=== PATIENT | male | born 1990 | race African-American/Black ===

== ENCOUNTER 2018-05-22 09:24 | Emergency (ER) | payer SELFPAY ==
[2018-05-22] MEDS ORDERED: Ibuprofen TAB* 600 MG PO ONE (09:34)
[2018-05-22] MEDS ORDERED: NS 0.9% 1000 ML** 1,000 ML IV ONE ×2 (10:11→11:21)
[2018-05-22 10:34] LABS: ABS Basophils 0 10^3/ul (0-0.2); ABS Eosinophils 0 10^3/ul (0-0.6); ABS Lymphocytes 0.5 10^3/ul (1.0-4.8); ABS Monocytes 0.5 10^3/ul (0-0.8); ABS Neutrophils 10.4 10^3/ul (1.5-7.7); ABS Nucleated RBC 0 10^3/ul; Eosinophil % 0.4 %; Hematocrit 49 % (42-52); Hemoglobin 16.4 g/dl (14.0-18.0); Lymphocyte % 4.3 %; Mean Corpuscular HGB Conc 33 g/dl (31-36); Mean Corpuscular Hemoglobin 29 pg (27-31); Mean Corpuscular Volume 88 fL (80-94); Mean Platelet Volume 7.9 fL (7.4-10.4); Nucleated Red Blood Cells % 0; Platelet Count 154 10^3/ul (150-450); Red Blood Count 5.59 10^6/ul (4.00-5.40); Red Cell Distribution Width 14 % (10.5-15); White Blood Count 11.5 10^3/ul (3.5-10.8)
[2018-05-22 10:57] LABS: Albumin 4.3 g/dL (3.2-5.2); Albumin/Globulin Ratio 1.2 (1-3); BUN/Creatinine Ratio 8.6 (8-20); C Reactive Protein 70.87 mg/L (<8.01); EGFR Non-African American 83.5 (>60); Globulin 3.5 g/dL (2-4); Potassium 4.5 mmol/L (3.5-5.0); Total Protein 7.8 g/dL (6.4-8.9)
[2018-05-22 11:18] LABS: Influenza A Molecular NEGATIVE (Negative); Influenza B Molecular NEGATIVE (Negative)
[2018-05-22] MEDS ORDERED: Levofloxacin 500 MG IVPREMIX(* 500 MG/100 ML BAG IVPB ONE (11:21)
[2018-05-22] MEDS ORDERED: Albuterol HFA INHALER* 8 gm MDI INH ONE (12:20)
[2018-05-22 12:43] LABS: Urine Appearance Clear; Urine Bilirubin Negative (Negative); Urine Blood Negative (Negative); Urine Color Yellow; Urine Glucose Negative (Negative); Urine Ketones Negative (Negative); Urine Nitrite Negative (Negative); Urine Protein Negative (Negative); Urine Urobilinogen Negative (Negative)
--- NOTE | 2018-05-22 13:46 | ED ---
HPI Febrile Illness - HPI Summary HPI Summary: Patient is a 27-year-old male presenting to the ED with cough, congestion, fevers, sweats, chills and insomnia 3 days. He denies any known sick contacts. He states this happens once a year and is given antibiotics with good relief. He is not taking any medications at home for his fevers. Temperature highest at home was 102.5. Denies any abdominal pain, urinary symptoms, constipation, diarrhea, nausea, vomiting. Patient states he is otherwise healthy, takes no medications. He states he is having intermittent SOB with cough, however denies any chest pains. He has no cardiac or pulmonary history. - History of Current Complaint Chief Complaint: EDFluSymptoms Time Seen by Provider: 05/22/18 10:07 Hx Obtained From: Patient Onset/Duration: Started Hours Ago Timing: Constant Initial Severity: Moderate Current Severity: Moderate Pain Intensity: 8 Aggravating Factors: Nothing Alleviating Factors: Nothing Associated Signs and Symptoms: Arthralgia, Chills, Cough, Diaphoresis, Headache - Risk Factors Pseudomonas Risk Factors: Negative Serious Bacterial Infection Risk Factors: Negative - Allergy/Home Medications Allergies/Adverse Reactions: Allergies Allergy/AdvReac Type Severity Reaction Status Date / Time aspirin Allergy Nausea And Verified 05/22/18 09:34 Vomiting PMH/Surg Hx/FS Hx/Imm Hx Previously Healthy: Yes Endocrine/Hematology History: Denies: Hx Diabetes Cardiovascular History: Denies: Hx Congestive Heart Failure, Hx Hypertension Respiratory History: Reports: Hx Asthma - Immunization History Hx Pertussis Vaccination: No Immunizations Up to Date: Yes Infectious Disease History: No Infectious Disease History: Denies: Hx Clostridium Difficile, Hx Hepatitis, Hx Human Immunodeficiency Virus (HIV), Hx of Known/Suspected MRSA, Hx Shingles, Hx Tuberculosis, Hx Known/ Suspected VRE, Hx Known/Suspected VRSA, History Other Infectious Disease, Traveled Outside the [place] in Last 30 Days - Family History Known Family History: Positive: None - Social History Occupation: Employed Full-time Lives: With Family Alcohol Use: None Hx Substance Use: No Substance Use Type: Reports: None Smoking Status (MU): Former Smoker Review of Systems Positive: Fatigue, Skin Diaphoresis. Negative: Fever, Chills Negative: Palpitations, Chest Pain Positive: Shortness Of Breath, Cough Negative: Abdominal Pain, Vomiting, Diarrhea, Nausea Genitourinary: Negative Positive: no symptoms reported, see HPI Positive: Myalgia Skin: Negative Positive: Headache, Weakness Negative: Anxious, Depressed All Other Systems Reviewed And Are Negative: Yes Physical Exam Triage Information Reviewed: Yes Vital Signs On Initial Exam: Initial Vitals Temp Pulse Resp BP Pulse Ox 102.3 F 114 16 106/73 96 05/22/18 09:29 05/22/18 09:29 05/22/18 09:29 05/22/18 09:29 05/22/18 09:29 Vital Signs Reviewed: Yes Appearance: Positive: Well-Appearing, Well-Nourished Skin: Positive: Warm, Skin Color Reflects Adequate Perfusion, Dry Head/Face: Positive: Normal Head/Face Inspection Eyes: Positive: EOMI, REINA, Conjunctiva Clear Neck: Positive: Supple Respiratory/Lung Sounds: Positive: Clear to Auscultation, Breath Sounds Present Cardiovascular: Positive: RRR, Pulses are Symmetrical in both Upper and Lower Extremities Musculoskeletal: Positive: Normal, Strength/ROM Intact Neurological: Positive: Speech Normal Psychiatric: Positive: Affect/Mood Appropriate AVPU Assessment: Alert Diagnostics - Vital Signs Vital Signs Temp Pulse Resp BP Pulse Ox 05/22/18 12:28 97 112/66 92 05/22/18 12:27 100.2 F 117 90 05/22/18 09:29 102.3 F 114 16 106/73 96 - Laboratory Lab Results: Lab Results 05/22/18 05/22/18 05/22/18 Range/Units 10:25 10:25 10:25 WBC 11.5 H (3.5-10.8) 10^3/ul RBC 5.59 H (4.00-5.40) 10^6/ul Hgb 16.4 (14.0-18.0) g/dl Hct 49 (42-52) % MCV 88 (80-94) fL MCH 29 (27-31) pg MCHC 33 (31-36) g/dl RDW 14 (10.5-15) % Plt Count 154 (150-450) 10^3/ul MPV 7.9 (7.4-10.4) fL Neut % (Auto) 90.5 % Lymph % (Auto) 4.3 % [place] % (Auto) 4.6 % Eos % (Auto) 0.4 % Baso % (Auto) 0.2 % Absolute Neuts (auto) 10.4 H (1.5-7.7) 10^3/ul Absolute Lymphs (auto) 0.5 L (1.0-4.8) 10^3/ul Absolute Monos (auto) 0.5 (0-0.8) 10^3/ul Absolute Eos (auto) 0 (0-0.6) 10^3/ul Absolute Basos (auto) 0 (0-0.2) 10^3/ul Absolute Nucleated RBC 0 10^3/ul Nucleated RBC % 0 Sodium 137 (135-145) mmol/L Potassium 4.5 (3.5-5.0) mmol/L Chloride 99 L (101-111) mmol/L Carbon Dioxide 30 (22-32) mmol/L Anion Gap 8 (2-11) mmol/L BUN 9 (6-24) mg/dL Creatinine 1.05 (0.67-1.17) mg/dL Est GFR ( Amer) 101.0 (>60) Est GFR (Non-Af Amer) 83.5 (>60) BUN/Creatinine Ratio 8.6 (8-20) Glucose 142 H (70-100) mg/dL Lactic Acid 2.3 H* (0.5-2.0) mmol/L Calcium 10.0 (8.6-10.3) mg/dL Total Bilirubin 1.00 (0.2-1.0) mg/dL AST 37 (13-39) U/L ALT 26 (7-52) U/L Alkaline Phosphatase 62 (34-104) U/L C-Reactive Protein 70.87 H (<8.01) mg/L Total Protein 7.8 (6.4-8.9) g/dL Albumin 4.3 (3.2-5.2) g/dL Globulin 3.5 (2-4) g/dL Albumin/Globulin Ratio 1.2 (1-3) Urine Color Urine Appearance Urine pH (5-9) Ur Specific [place] (1.010-1.030) Urine Protein (Negative) Urine Ketones (Negative) Urine Blood (Negative) Urine Nitrate (Negative) Urine Bilirubin (Negative) Urine Urobilinogen (Negative) Ur Leukocyte Esterase (Negative) Urine Glucose (Negative) Urine Ascorbic Acid (Negative) Influenza A (Rapid) (Negative) Influenza B (Rapid) (Negative) 05/22/18 05/22/18 Range/Units 11:06 12:28 WBC (3.5-10.8) 10^3/ul RBC (4.00-5.40) 10^6/ul Hgb (14.0-18.0) g/dl Hct (42-52) % MCV (80-94) fL MCH (27-31) pg MCHC (31-36) g/dl RDW (10.5-15) % Plt Count (150-450) 10^3/ul MPV (7.4-10.4) fL Neut % (Auto) % Lymph % (Auto) % [place] % (Auto) % Eos % (Auto) % Baso % (Auto) % Absolute Neuts (auto) (1.5-7.7) 10^3/ul Absolute Lymphs (auto) (1.0-4.8) 10^3/ul Absolute Monos (auto) (0-0.8) 10^3/ul Absolute Eos (auto) (0-0.6) 10^3/ul Absolute Basos (auto) (0-0.2) 10^3/ul Absolute Nucleated RBC 10^3/ul Nucleated RBC % Sodium (135-145) mmol/L Potassium (3.5-5.0) mmol/L Chloride (101-111) mmol/L Carbon Dioxide (22-32) mmol/L Anion Gap (2-11) mmol/L BUN (6-24) mg/dL Creatinine (0.67-1.17) mg/dL Est GFR ( Amer) (>60) Est GFR (Non-Af Amer) (>60) BUN/Creatinine Ratio (8-20) Glucose (70-100) mg/dL Lactic Acid (0.5-2.0) mmol/L Calcium (8.6-10.3) mg/dL Total Bilirubin (0.2-1.0) mg/dL AST (13-39) U/L ALT (7-52) U/L Alkaline Phosphatase (34-104) U/L C-Reactive Protein (<8.01) mg/L Total Protein (6.4-8.9) g/dL Albumin (3.2-5.2) g/dL Globulin (2-4) g/dL Albumin/Globulin Ratio (1-3) Urine Color Yellow Urine Appearance Clear Urine pH 6.0 (5-9) Ur Specific [place] 1.020 (1.010-1.030) Urine Protein Negative (Negative) Urine Ketones Negative (Negative) Urine Blood Negative (Negative) Urine Nitrate Negative (Negative) Urine Bilirubin Negative (Negative) Urine Urobilinogen Negative (Negative) Ur Leukocyte Esterase Negative (Negative) Urine Glucose Negative (Negative) Urine Ascorbic Acid * A (Negative) Influenza A (Rapid) Negative (Negative) Influenza B (Rapid) Negative (Negative) Result Diagrams: 05/22/18 10:25 05/22/18 10:25 Lab Statement: Any lab studies that have been ordered have been reviewed, and results considered in the medical decision making process. Course/Dx - Course Course Of Treatment: During course of treatment, the patient's evaluated for fevers, sweats, chills. On arrival, his vital signs are noted to flex for sepsis. Prior to this, swab obtained for flu. Flu negative. At this time, 2 L fluids given and Zosyn given for possible pneumonia while awaiting CXR. CXR negative for PNA. Lungs are CTA. Regular rhythm, tachycardic. Bowel sounds normal. Nondiaphoretic and nontoxic in appearing. Dry mucous membranes. No evidence of meningeal symptoms. Patient denies photophobia. He is given albuterol inhaler with good relief. As labs or WNL except for slightly elevated white count, patient is stable to go home. He states he feels improved after fluids. He is discharged home with azithromycin, prednisone and Tessalon Perles. He is diagnosed with bronchitis with fever. - Febrile Illness Differential Diagnoses: Fever of Unknown Origin, Pneumonia - Diagnoses Provider Diagnoses: Bronchitis, Fever Discharge - Sign-Out/Discharge Documenting (check all that apply): Patient Departure Patient Received Moderate/Deep Sedation with Procedure: No - Discharge Plan Condition: Stable Disposition: HOME Prescriptions: Azithromyxin BALAJI (NF) [Z-Balaji (Zithromax) 250 mg tabs #6] 2 tab PO .TODAY, THEN 1 DAILY #6 tab Benzonatate CAP* [Tessalon 100 MG CAP*] 100 mg PO TID #12 cap predniSONE TAB* [Deltasone TAB*] 50 mg PO DAILY #5 tab Patient Education Materials: Fever in Adults (ED) Referrals: Curt Amezquita MD [Primary Care Provider] - Additional Instructions: Tylenol 650 mg 3 times daily You may intermittently use 600 mg ibuprofen 3 times daily as well Prednisone 50 mg once daily, use in the morning Albuterol inhaler, use as needed for shortness of breath Azithromycin, 2 today and one daily 4 days Tessalon 3 Times Daily As Needed for Cough - Billing Disposition and Condition Condition: STABLE Disposition: Home
[2018-05-22 14:18] VITALS: BP 101/62
== END 2018-05-22 13:49 | disposition home or self-care (01) ==
LOC: ED 09:24
DX: J40 Bronchitis, not specified as acute or chronic (principal); R50.9 Fever, unspecified; Z88.6 Allergy status to analgesic agent; Z87.891 Personal history of nicotine dependence
CPT/HCPCS: 36415; 71046; 80053; 81003; 83605; 85025; 86140; 96365; 99282; A9270-GY; J1956

== ENCOUNTER 2018-12-30 13:32 | Emergency (ER) | payer SELFPAY ==
[2018-12-30 15:26] LABS: Rapid Strep Molecular Negative (Negative)
[2018-12-30 15:31] LABS: Influenza A Molecular NEGATIVE (Negative); Influenza B Molecular NEGATIVE (Negative)
[2018-12-30] MEDS ORDERED: Saline NASAL DROPS 0.65%* 1 DROP BTL BOTH NARES ONE (15:37)
[2018-12-30] MEDS ORDERED: Albuterol HFA INHALER* 8 gm MDI INH ONE (15:37)
[2018-12-30] MEDS ORDERED: guaiFENesin ER TAB 600 MG PO ONE (15:37)
[2018-12-30] MEDS ORDERED: Ondansetron ODT TAB* 4 MG SL ONE (15:37)
[2018-12-30] MEDS ORDERED: GuaiFENesin DM* 5 ML UDC PO ONE (16:55)
[2018-12-30 17:48] VITALS: BP 126/70
--- NOTE | 2019-01-01 05:21 | ED ---
Influenza-Like Illness - HPI Summary HPI Summary: This patient is a 28-year-old male presenting to the ED with flulike symptoms. He states over the past 2 days, he has had nasal congestion with a cough as well as sweats and chills. He has been unable to go to work for the past 5 days due to the symptoms. He denies any worsening weakness or fatigue. Denies any CP or SOB. Denies any change of voice or difficulty swallowing but endorses painful swallowing. Denies any bilateral ear pain. He states he has had symptoms like this before and was diagnosed with influenza. He states he believes he has influenza or strep throat. His are not better with over-the- counter medications or rest. Symptoms are not been worsening over the past week , however remained constant. He takes no medications and is otherwise healthy. - History of Current Complaint Chief Complaint: EDFluSymptoms Time Seen by Provider: 12/30/18 14:29 Hx Obtained From: Patient Onset/Duration: Sudden Onset Severity: Mild Associated Signs & Symptoms: Cough, Sore Throat - Risk Factors Influenza Risk Factors: Negative - Allergy/Home Medications Allergies/Adverse Reactions: Allergies Allergy/AdvReac Type Severity Reaction Status Date / Time aspirin Allergy Nausea And Verified 05/22/18 09:34 Vomiting PMH/Surg Hx/FS Hx/Imm Hx Previously Healthy: Yes Endocrine/Hematology History: Denies: Hx Diabetes Cardiovascular History: Denies: Hx Congestive Heart Failure, Hx Hypertension Respiratory History: Reports: Hx Asthma - Immunization History Hx Pertussis Vaccination: No Immunizations Up to Date: Yes Infectious Disease History: No Infectious Disease History: Denies: Hx Clostridium Difficile, Hx Hepatitis, Hx Human Immunodeficiency Virus (HIV), Hx of Known/Suspected MRSA, Hx Shingles, Hx Tuberculosis, Hx Known/ Suspected VRE, Hx Known/Suspected VRSA, History Other Infectious Disease, Traveled Outside the [place] in Last 30 Days - Family History Known Family History: Positive: None - Social History Occupation: Employed Full-time Lives: With Family Alcohol Use: None Hx Substance Use: No Substance Use Type: Reports: None Hx Tobacco Use: No Smoking Status (MU): Former Smoker Review of Systems Negative: Fever, Chills, Fatigue, Skin Diaphoresis Negative: Blurred Vision, Diplopia Positive: Sore Throat Negative: Chest Pain Positive: Cough. Negative: Shortness Of Breath Genitourinary: Negative Positive: no symptoms reported, see HPI Negative: Arthralgia, Myalgia Neurological: Negative All Other Systems Reviewed And Are Negative: Yes Physical Exam Triage Information Reviewed: Yes Vital Signs On Initial Exam: Initial Vitals Temp Pulse Resp BP Pulse Ox 99.5 F 99 18 122/84 98 12/30/18 13:35 12/30/18 13:35 12/30/18 13:35 12/30/18 13:35 12/30/18 13:35 Vital Signs Reviewed: Yes Appearance: Positive: Well-Appearing, Well-Nourished Skin: Positive: Warm, Skin Color Reflects Adequate Perfusion Head/Face: Positive: Normal Head/Face Inspection Eyes: Positive: EOMI, REINA, Conjunctiva Clear Neck: Positive: Supple, No Lymphadenopathy Respiratory/Lung Sounds: Positive: Clear to Auscultation, Breath Sounds Present Cardiovascular: Positive: RRR, Pulses are Symmetrical in both Upper and Lower Extremities Musculoskeletal: Positive: Strength/ROM Intact Neurological: Positive: Speech Normal Psychiatric: Positive: Normal, Affect/Mood Appropriate AVPU Assessment: Alert Diagnostics - Vital Signs Vital Signs Temp Pulse Resp BP Pulse Ox 12/30/18 17:30 98.5 F 82 16 126/70 98 12/30/18 16:39 98.8 F 67 16 105/65 94 12/30/18 13:35 99.5 F 99 18 122/84 98 - Laboratory Lab Results: Lab Results 12/30/18 12/30/18 Range/Units 15:00 15:00 Influenza A (Rapid) Negative (Negative) Influenza B (Rapid) Negative (Negative) Group A Strep Rapid Negative (Negative) Lab Statement: Any lab studies that have been ordered have been reviewed, and results considered in the medical decision making process. Flu Symptom Course/Dx - Course Course Of Treatment: This patient is evaluated for throat pain, cough and congestion. He states he has been having sweats and chills, but denies any subjective fevers. Vital signs are stable on arrival. On physical examination , patient appears well, nondiaphoretic. Lungs are CTA, RRR. No pharyngeal erythema or tonsillar exudate bilaterally. TMs normal without erythema. Strep swab and flu swab obtained, both of which are negative. He was given Robitussin , nasal saline spray as well as an albuterol inhaler in the ED. Patient states he is feeling improved and is requesting a note for work. He will be diagnosed with acute cough and congestion. - Diagnoses Differential Diagnosis/HQI/PQRI: Positive: Bronchitis, Pneumonia, Upper Respiratory Infection Provider Diagnoses: URI with cough and congestion Discharge ED - Sign-Out/Discharge Documenting (check all that apply): Patient Departure Patient Received Moderate/Deep Sedation with Procedure: No - Discharge Plan Condition: Stable Disposition: HOME Prescriptions: guaiFENesin LIQ* [Robitussin*] 10 ml PO Q4H PRN #1 udc PRN Reason: Cough guaiFENesin LIQ* [Robitussin*] 10 ml PO Q4H PRN #1 udc PRN Reason: Cough Patient Education Materials: Viral Syndrome (ED), Acute Cough (ED) Forms: *Work Release Referrals: Curt Amezquita MD [Primary Care Provider] - Additional Instructions: Albuterol inhaler up to every 4 hours as needed for shortness of breath Robitussin up to every 4 hours as needed for cough Rest Off work x 2 days Drink plenty of fluids - Billing Disposition and Condition Condition: STABLE Disposition: Home
== END 2018-12-30 17:30 | disposition home or self-care (01) ==
LOC: ED 13:32
DX: J06.9 Acute upper respiratory infection, unspecified (principal); J45.909 Unspecified asthma, uncomplicated; Z87.891 Personal history of nicotine dependence; Z88.6 Allergy status to analgesic agent
CPT/HCPCS: 71046; 87651; 99283; A9270-GY